=== PATIENT | female | born 1985 | race Caucasian/White ===

== ENCOUNTER 2021-08-05 16:09 | Emergency (ER) | payer MEDICAID ==
[~2021-08-05] VITALS: Ht 157.5 cm; Wt 86.0 kg
[2021-08-05 20:54] VITALS: BP 138/92
== END 2021-08-05 20:55 | disposition home or self-care (01) ==
LOC: ER 16:09
DX: R05 Cough (principal)
CPT/HCPCS: 71045; 99283

== ENCOUNTER 2022-08-15 21:43 | Emergency (ER) | payer MEDICAID ==
[~2022-08-15] VITALS: Ht 162.6 cm; Wt 93.3 kg
[2022-08-16] MEDS: MAGNESIUM/ALUMINUM HYDROXIDE/SIMETHICONE 30ML UDC PO STA ×2 (03:08→03:55)
[2022-08-16] MEDS: VISCOUS LIDOCAINE 2% 15 ML UDC PO STA ×2 (03:08→03:55)
[2022-08-16] MEDS: DICYCLOMINE 10 MG/5 ML ORAL SYR PO STA ×2 (03:08→03:55)
[2022-08-16 03:09] LABS: BASOPHILS % 0.4 % (0.0-2.0); EOSINOPHILS % 4.9 % (0.0-5.0); HEMATOCRIT. 26.4 % (36.0-48.0); HEMOGLOBIN. 8.5 g/dL (12.0-16.0); MEAN CORPUSCULAR HEMOGLOBIN 22.5 pg (28.0-32.0); MEAN CORPUSCULAR VOLUME 70.1 fL (81.0-99.0); MEAN PLATELET VOLUME 7.3 fl (7.4-10.4); MONOCYTES % 6.7 % (2.0-8.0); PLATELET 408 x1000/uL (130-400); RED BLOOD CELL COUNT 3.76 mill/uL (4.2-5.4); RED CELL DISTRIBUTION WIDTH 18.4 % (11.6-14.6)
[2022-08-16 03:10] LABS: CLARITY URINE CLEAR (CLEAR); COLOR URINE YELLOW (YELLOW); KETONES URINE NEGATIVE (NEGATIVE); LEUKOCYTE ESTERASE URINE TRACE (NEGATIVE); NITRITE URINE NEGATIVE (NEGATIVE); OCCULT BLOOD URINE NEGATIVE (NEGATIVE); PROTEIN URINE 1+ (NEGATIVE); SPECIFIC GRAVITY URINE 1.013 (1.005-1.030); UROBILINOGEN URINE 0.2 E.U./dL (0.2-1.0)
[2022-08-16 03:17] LABS: CHLORIDE 112 mEq/L (98-107); HCG SCREEN NEGATIVE
[2022-08-16] MEDS: KETOROLAC 15MG/ML VIAL IM ONE (04:16)
[2022-08-16 05:45] VITALS: BP 122/76
[2022-08-16] MEDS ORDERED: ONDA4TAB50 MT (05:55)
== END 2022-08-16 07:03 | disposition home or self-care (01) ==
LOC: ER 21:43
DX: K80.50 Calculus of bile duct without cholangitis or cholecystitis without obstruction (principal); K80.20 Calculus of gallbladder without cholecystitis without obstruction; K42.9 Umbilical hernia without obstruction or gangrene; D25.9 Leiomyoma of uterus, unspecified; J45.909 Unspecified asthma, uncomplicated; Z98.890 Other specified postprocedural states
CPT/HCPCS: 36415; 74176; 80053; 81003; 83605; 83690; 84703; 85025; 93005; 96372; 99285; J1885

== ENCOUNTER 2023-10-29 12:20 | Emergency (ER) | payer MEDICAID ==
[~2023-10-29] VITALS: Ht 157.5 cm; Wt 70.0 kg
[~2023-10-29 12:20] MED LIST: ONDA4TAB50 MT
[2023-10-29 12:36] VITALS: BP 143/95; PULSE 96; RESP 15; TEMP 98.5; O2SAT 99
[2023-10-29] MEDS ORDERED: ACETAMINOPHEN 325MG TABLET PO ONE (13:00)
[2023-10-29] MEDS ORDERED: IBUP-2028 MT (13:29)
== END 2023-10-29 14:07 | disposition home or self-care (01) ==
LOC: ER 13:22
DX: J06.9 Acute upper respiratory infection, unspecified (principal); J45.909 Unspecified asthma, uncomplicated; Z98.890 Other specified postprocedural states
CPT/HCPCS: 71045; 99283